=== PATIENT | male | born 2000 | race Caucasian/White ===

== ENCOUNTER 2024-08-06 18:09 | Inpatient (IN) | payer OTHER, SELFPAY ==
[2024-08-06] VITALS (9 sets, daily range): BP systolic 100–125; BP diastolic 63–98; BMI 27.8
[2024-08-06 12:17] LABS: % Basophils 0.3 % (0-2); % Immature Granulocytes 0.5 % (0-0.5); % Lymphocytes 15.1 % (20.5-51.1); % Monocytes 6.7 % (1.7-9.3); % Neutrophils 76.4 % (42.2-75.2); Absolute Eosinophils 0.2 10^3/uL (0-0.7); Absolute Immature Granulocytes 0.1 10^3/uL (0-0.05); Absolute Lymphocytes 2.3 10^3/uL (1.2-3.4); Absolute Neutrophils 11.5 10^3/uL (1.4-6.5); Hematocrit 38.1 % (39.0-52.0); Hemoglobin 12.6 g/dL (13.0-18.0); Mean Corp Hgb Conc. 33.1 g/dL (33.0-37.0); Mean Corpuscular Hgb 27.5 pg (27.0-31.0); Mean Platelet Volume 8.5 fL (7.4-10.4); Nucleated Red Blood Cells % 0 % (-); Platelet Count 401 10^3/uL (130-400); Red Blood Cell Count 4.59 10^6/uL (4.70-6.10); Red Cell Dist. Width 12.4 % (11.5-14.5); White Blood Cell Count 15.1 10^3/uL (4.8-10.8)
[2024-08-06 12:40] LABS: Alkaline Phosphatase 76 U/L (38-126); Blood Urea Nitrogen 10 mg/dl (9-20); Carbon Dioxide 25 mmol/L (22-30); Chloride 105 mmol/L (98-107); Glucose 98 mg/dl (70-99); Potassium 4.1 mmol/L (3.5-5.1); Sodium 138 mmol/L (135-145); eGFR > 60.00
[2024-08-06 12:41] LABS: ALT (SGPT) 36 U/L (0-50); AST (SGOT) 27 U/L (17-59); Albumin 3.7 g/dl (3.5-5.0); Total Bilirubin 0.7 mg/dl (0.2-1.3); Total Protein 7.3 g/dl (6.3-8.2)
--- NOTE | 2024-08-06 14:22 | ED.GENMED ---
History of Present Illness
General
Chief Complaint: Cold/Flu/URI Symptoms
Source: patient and family
Exam Limitations: none
Time Seen by Provider: 08/06/24 13:48
Nursing documentation reviewed up to this point in time: agreed with
History of Present Illness
History of Present Illness:
24-year-old male presents to the emergency department for evaluation of persistent cough and worsening shortness of breath X 6 weeks. Patient states symptoms initially started with a productive cough which has become dry over the past 6 weeks which
he initially attributed to allergies. However�cough persisted and he feels as if he is becoming increasingly short of breath. Patient also reports extreme fatigue, night sweats, and a 10 pound weight loss over the past 2 weeks. He denies any
known fevers.
Patient denies any recent travel or recent surgeries. No lower extremity pain or swelling. No hemoptysis.
Patient was seen at urgent care a few days ago where he had a chest x-ray performed which showed a concerning mass/opacity in right hilar region. Apparently urgent care prescribed doxycycline for suspected pneumonia although his pharmacy did not
have it in stock. It was recommended the patient have follow-up CT scan which he unfortunately was unable to get scheduled for the next few weeks.
He presents today with worsening shortness of breath CT scan for better evaluation.
Review of Systems
Review of Systems
Allergies reviewed?: Yes
All Other Systems: ROS reviewed and negative except as documented in HPI and ROS
Phy Exam
Physical Exam
Physical Exam:
Vitals: Patient's vital signs are stable. Afebrile
General: Patient is pale
Skin: Warm and dry, no rashes or lesions
Head: Normocephalic, atraumatic
Eyes: Sclera nonicteric.
Throat: Protecting airway
Neck: Normal ROM, no cervical spine tenderness, no meningismus
Cardiac: Regular rate and rhythm, no murmurs.
Pulm: No evidence of respiratory distress. Frequent cough. Lungs clear.
.
Abdomen: Abdomen soft. Minimal tenderness in epigastric region without rebound tenderness or guarding. No rash or ecchymoses.
Extremities: No evidence of cyanosis or edema. Palpable DP pulses bilaterally
Neuro: AAOx3. Grossly intact.
Psychiatric: Normal affect.
Course
Orders/Labs/Results
Orders:
Orders
08/06/24 Breakfast
Regular
At Your Request: Full Participation
08/06/24 12:01
CMP [Comprehensive Metabolic Panel] Urgent
Complete Blood Count/With Diff Urgent
Lipase Urgent
Comment: ADD ON
Monotest Urgent
Comment: ADD ON
08/06/24 14:07
0.9% Sodium Chloride 1000 ml [Nss] 1,000 ml IV BOLUS
08/06/24 14:08
Add On- LAB Urgent
Tests Added?: Monospot, lipase
CT Pe/abd/pel W Urgent
Reason For Exam: Cough x 6 weeks, SOB; mass seen on outpatient xray, orders combined
08/06/24 14:10
Electrocardiogram (*1) Urgent
Reason for Study: Shortness of Breath
EKG- Treatment ONCE
08/06/24 14:34
COVID-19 Antigen Urgent
Source: Nasal Swab
Influenza A+B Rapid Molecular Urgent
CHRISTINA Source: Nasal Swab
Specimen Description:
08/06/24 17:06
Piperacillin/Tazo 3.375 Gram [Zosyn] 3.375 gram in 50 ml IV NOW
08/06/24 17:07
Vancomycin [Vancocin] 2,000 mg 0.9% Sodium Chloride 500 ml [Nss] 500 ml IV NOW
08/06/24 17:44
Admit/Transfer Patient As Directed
Co-Sign Provider:
Level of Care: Inpatient admission
Assign to:: Medical/Surgical
Physician / Group: alejandro
Diagnosis: pneumonia
Reason for Hospitalization: pneumonia
Expected length of stay greater than two midnights?: Yes
ELOS- Estimated Length of Stay in days: 3
I certify the patient meets the requirements for IP care: Yes
Code Status As Directed
Resuscitation Status: Full Code
PRN Pain Medication Management As Directed
May give lesser potent ordered pain med per pt: Yes
preference::
Protocol:: Medication orders for pain may be administered in a
manner that supports deferring to patient preference
when the pt is:
- Requesting an ordered lesser potent pain medication.
Least to most potent pain medications are defined
as: acetaminophen < NSAID < tramadol < opioids
(morphine, oxycodone, hydromorphone).
- Requesting a lesser dose of the same medication IF
ORDERED.
- Requesting a less intrusive route of administration
if both routes are prescribed by the provider (PO <
IV).
08/06/24 17:48
AFB Culture [Acid Fast Culture & Smear] Stat
CHRISTINA Source: Sputum
Specimen Description:
08/06/24 17:49
PULMONARY CONSULT Routine
Consulting Provider: Jem Blair
Was physician already notified: Yes
Shahab- Isolation [Shahab- Precautions] As Directed
Type of Precautions: Airborne
08/06/24 19:25
Blood Culture Q30M
CHRISTINA Source: Blood/Venous
Specimen Description:
Blood Culture Q30M
CHRISTINA Source: Blood/Venous
Specimen Description:
08/06/24 20:37
Acetaminophen [Tylenol] 650 mg PO Q4HPRN PRN
Doxycycline [Vibramycin] 100 mg PO BID
Enoxaparin Sodium [Lovenox] 40 mg SC QPM
Escitalopram Oxalate [Lexapro] 20 mg PO QPM
Guaifenesin [Mucinex] 600 mg PO Q12
08/06/24 20:37
Legionella Urinary Antigen Routine
CHRISTINA Source: Urine
Specimen Description:
Respiratory Culture/Gram Stain Urgent
CHRISTINA Source: Sputum
Specimen Description:
Strep pneumoniae Antigen Routine
CHRISTINA Source: Urine
Specimen Description:
Activity As Directed
Activity Level: Out of Bed-Early Mobility
Intake/ Output As Directed
Frequency: Per unit guidelines
Vital Signs As Directed
Frequency: Per unit guidelines
Weight As Directed
Frequency: Once
Comment: on admission
DX Deep Vein Thrombosis Video Routine
08/07/24 00:00
Piperacillin/Tazo 3.375 Gram [Zosyn] 3.375 gram in 50 ml IV Q6H
08/07/24 05:44
Complete Blood Count/No Diff IN AM
08/07/24 06:00
AFB Culture [Acid Fast Culture & Smear] IN AM
CHRISTINA Source: Sputum
Specimen Description:
08/08/24 06:00
AFB Culture [Acid Fast Culture & Smear] IN AM
CHRISTINA Source: Sputum
Specimen Description:
Complete Blood Count/No Diff IN AM
08/09/24 06:00
AFB Culture [Acid Fast Culture & Smear] IN AM
CHRISTINA Source: Sputum
Specimen Description:
Complete Blood Count/No Diff IN AM
Abnormal Lab Results
08/06/24
12:01
WBC 15.1 H 10^3/uL
(4.8-10.8)
RBC 4.59 L 10^6/uL
(4.70-6.10)
Hgb 12.6 L g/dL
(13.0-18.0)
Hct 38.1 L %
(39.0-52.0)
Plt Count 401 H 10^3/uL
(130-400)
Abs Immat Gran (auto) 0.1 H 10^3/uL
(0-0.05)
Absolute Neuts (auto) 11.5 H 10^3/uL
(1.4-6.5)
Absolute Monos (auto) 1.0 H 10^3/uL
(0.1-0.6)
Neutrophils % 76.4 H %
(42.2-75.2)
Lymphocytes % 15.1 L %
(20.5-51.1)
08/06/24 12:01
08/06/24 12:01
Vital Signs
Initial and Last Documented VS:
Initial Vital Signs
Temp Pulse Resp BP Pulse Ox
99.5 F 94 18 125/74 98
08/06/24 11:49 08/06/24 11:49 08/06/24 11:49 08/06/24 11:49 08/06/24 11:49
Last Documented Vital Signs
Temp Pulse Resp BP Pulse Ox
98.5 F 95 22 104/61 95
08/07/24 08:06 08/07/24 08:06 08/07/24 08:06 08/07/24 08:06 08/07/24 08:06
MDM/Problems Addressed
Differential Diagnosis Includes:
Not limited to: pneumonia, lung abscess, pleural effusion, bronchitis, neoplastic disease such as lymphoma, etc
MDM/Problems Addressed:
24 year-old male who presents with six weeks of cough, night sweats, weight loss, fatigue, now with worsening shortness of breath. Seen at urgent care a few days ago were an x-ray showed a perihilar opacity/mass with recommendation for further
imaging by CT scan. Patient started on doxycycline for suspected pneumonia, although has not yet started prescription.
No exertional chest pain. No PE risk factors.
Patient has stable vital signs on arrival. He is a febrile.
Physical exam as above. Patient well appearing, in no apparent distress. Heart regular rate and rhythm. Lungs clear bilaterally. No clinical evidence of DVT on exam.
I did review chest x-ray report from urgent care. While patient does have infectious symptoms � concern for neoplastic process as well given hx night sweats/weight loss. Will check basic labs, EKG, viral studies. Patient�s primary care has already
ordered a CT scan chest/abdomen/pelvis. Will obtain this here in the emergency department.
Update: labs reviewed. Leukocytosis of 15.1. Chemistry unremarkable. CT scan shows large area of consolidation in right upper/right middle lobe w/ small foci of air and possible small area of cavitation. Also enlarged lymph nodes, possibly reactive.
Findings likely demonstrate pneumonia although unable to completely exclude neoplastic process. With concern of possible developing lung abscess - will admit patient for IV antibiotics. Patient will likely require pulmonary consult and possible
bronchoscopy. IV vancomycin/zosyn initiated in emergency department. Patient accepted to hospitalist service in stable condition.
Discussed all findings with patient�s primary care provider who is comfortable with plan and will follow him very closely outpatient.
Chronic conditions affecting care:
N/A
Acute Exacerbation and/or Progression of Chronic Illness:
N/A
*Radiology
Radiology exam reviewed: preliminary read by ED provider (Chest CT reviewed by me - YANAL / RML opacity) and radiology read reviewed
*Pulse Oximetry
Patient hypoxic: no
*EKG
Interpreted by ED Provider?: Yes
EKG Intrepretation Date: 08/06/24
Interpretation: normal
Comparison EKG: no comparison EKG present
Heart Rate: 88
Rate: normal
Rhythm: sinus arrhythmia
[place]: normal axis
Interval: normal QT interval
QRS Pattern: normal QRS
Ischemia: no ischemia
*Automobile Mechanic Interpretation
Rate: normal
Interpretation: normal
Heart Rate: 94
Rhythm: sinus
*Critical Care Note
Total Time (30-74mins, 75-104mins- exclusive of procedures): Not Applicable
Data Reviewed
Review of Other/Old Records Reveals: Radiology Studies (CXR report from which showed RUL opacity (pneumonia) vs mass) and Discharge Summary (Urgent care discharge summary - suspected bronchitis starte don po doxycycline advised repeat CT imaging
of chest)
Patient Management
Discussion with other providers: Hospitalist and PCP (Spoke with patients PCP, Dr. Blandon)
Escalation/DeEscalation of care consider admission/obs:
Admit for IV abx, further monitoring
ED Attending Note
-
Portions of this chart may have been created with voice recognition software.� Occasional wrong word or��sound alike� substitutions may have occurred due to the inherent limitations of voice recognition software.
Discharge Plan
Departure
Patient Disposition: Admit
Date of Disposition: 08/06/24
Time of Disposition: 17:15
Presentation/result/management discussed w/ accepting MD/DO: Hospitalist
Discharge Problem:
Right upper lobe pneumonia, Hilar adenopathy, Dyspnea
Interventions
Interventions:
*Risk Screen - Suicide Last Done: 08/06/24 11:49
*General Assessment Last Done: 08/06/24 14:30
*Neglect/Abuse Screening Last Done: 08/06/24 14:30
*ED- Fall Risk Assessment Last Done: 08/06/24 14:30
*ED COVID-19 Vaccine History Last Done: 08/06/24 14:30
*Nursing Disposition Last Done: 08/07/24 02:22
ED- Pulmonary Assessment Last Done: 08/06/24 14:30
[2024-08-06] MEDS: NSS 1000 IV (14:33)
[2024-08-06 14:53] LABS: Lipase 172 U/L (23-300)
[2024-08-06 15:23] LABS: COVID-19 Antigen Negative (Negative)
--- NOTE | 2024-08-06 15:42 | EDRN ---
Pt OOB prior to leaving for CT scan at this time.
[2024-08-06 16:03] LABS: Monotest Negative (Negative)
--- NOTE | 2024-08-06 17:23 | HPS.HSE ---
Family Physician
-
Family Physician: JASS Be
Chief Complaint
-
Cough and sob
History of Present Illness
24-year-old male with PMH for reactive airway disease, depression, anxiety presents to the emergency department for evaluation of persistent cough and worsening shortness of breath X 6 weeks. Patient states symptoms initially started with a
productive cough which has become dry over the past 6 weeks which he initially attributed to allergies. patient took prednisone as outpatient. he was also taking over the counter allergic medication with no relief in his symptoms. patient complained
of night sweats, fatigue and 10lb weight loss in two week. his abdomen was hurting after eating. denied fever, DAVILA,dizzy or syncope.denied chest pain.denied dysuria or hematuria.
Patient was seen at urgent care a few days ago where he had a chest x-ray performed which showed a concerning mass/opacity in right hilar region. Apparently urgent care prescribed doxycycline although his pharmacy did not have it in stock. It was
recommended the patient have follow-up CT scan which he unfortunately was unable to get scheduled for the next few weeks.
CT with the impression of Large area of consolidative increased parenchymal opacity involving the right upper lobe and the right middle lobe, which very likely represents pneumonia. Small foci of air density within this consolidation, suggesting
small foci of cavitation.
Patient received Vanco and Zosyn in ER. Admitted for further management
Medical History
Past Medical History
Past Medical History: Reports Other
Additional Past Medical History:
Reactive airway disease
Depression anxiety
Past Surgical History: Reports Other
Additional Past Surgical History:
[place] tooth extraction
Social History
Tobacco: Non-smoker
Alcohol: Occasional
Drug: None
Living: With Family
Employment: Employed
Family History
Family History: Not pertinent
Allergies / Home Medications
Allergies reflects when Allergies were last updated in [facility].
Home Medications with original date entered in [facility]
Allergy/Medication List:
Allergies
Allergy/AdvReac Type Severity Reaction Status Date / Time
No Known Allergies Allergy Verified 08/06/24 11:56
Home Medications
escitalopram oxalate 20 mg tablet (Lexapro) 20 mg PO QPM 08/06/24
Review of Systems
-
Constitutional: Reports Weight Loss and Fatigue
EENT: Reports No Symptoms
Respiratory: Reports Cough and Trouble Breathing
Cardiac: Reports No Symptoms
Abdomen/GI: Reports No Symptoms
: Reports No Symptoms
Musculoskeletal: Reports No Symptoms
Skin: Reports No Symptoms
Neurological: Reports No Symptoms
Endocrine: Reports No Symptoms
Hematologic/Lymphatic: Reports No Symptoms
Psych: Reports No Symptoms
Physical Exam
Vital Signs
Vital Signs
Temp Pulse Resp BP Pulse Ox
99.5 F 76 16 115/98 98
08/06/24 11:49 08/06/24 17:07 08/06/24 17:07 08/06/24 17:07 08/06/24 17:07
Physical Exam
General: Well Developed, Well Nourished and No Apparent Distress
HEENT: NormoCephalic, Moist mucous membranes and Atraumatic
Respiratory: Clear
Cardiac: S1/S2 and Regular Rhythm; No Murmur or Rub
GI: Soft, Non Tender, Non Distended and Normal Bowel Sounds; No Organomegaly
Rectal: Deferred by Provider
Musculoskeletal: No Clubbing, No Cyanosis and No Edema
Skin: No Rash
Neuro: AO x 3 and Nonfocal/grossly intact
Psych: Calm
Laboratory Results
-
08/06/24 12:01
08/06/24 12:01
Laboratory Results
Total Bilirubin 0.7 mg/dl (0.2-1.3) 08/06/24 12:01
AST 27 U/L (17-59) 08/06/24 12:01
ALT 36 U/L (0-50) 08/06/24 12:01
Alkaline Phosphatase 76 U/L (38-126) 08/06/24 12:01
Lipase 172 U/L (23-300) 08/06/24 12:01
Data Reviewed
-
CT Scan: Report Reviewed by me
Lab Data: Labs Reviewed by me
Impression/Plan
-
#pneumonia/with possible cavitation
-vanco and Zosyn in ED
-AFB x3
-Zosyn and Doxy continued
-WBCs 15.1
- COVID, flu, monoscreen negative
- CT abdomen pelvis with impression Large area of consolidative increased parenchymal opacity involving the right upper lobe and the right middle lobe, which very likely represents pneumonia. Small foci of air density within this consolidation,
suggesting small foci of cavitation.Neoplastic disease is a differential consideration but felt to be less likely.Small right pleural effusion.Enlarged right hilar, perihilar, mediastinal lymph nodes, most likely reactive inflammatory lymph
nodes.Mild splenomegaly
-pulmonology consulted
#depression/anxiety
-Lexapro continued
#DVT prophylaxis
-Lovenox
#CODE status
-full code
[2024-08-06] MEDS: ZOSYN 50 IV ×2 (17:28→23:49)
--- NOTE | 2024-08-06 17:29 | EDRN ---
Leslee Elias ON [employer] SUPERINTENDENT in room w/pt for5 hospitalist group at this time. Pharmacist called for vancomycin at this time.
--- NOTE | 2024-08-06 17:39 | EDRN ---
Dr. Grier in room w/pt at this time.
--- NOTE | 2024-08-06 17:59 | W.PN.UPDATE ---
Update Note
Progress Note Update
This is an addendum to the H&P written by Carri Elias on 08/06/2024. Patient seen examined independently with [employer]ATE [employer] GRINDER.
24-year-old male past medical history of anxiety/depression, reactive airway disease presenting with cough and worsening shortness of breath for 6 weeks. Initially productive cough became dry. Also with fatigue, night sweats and 10 pound weight
loss over 2 weeks. No fever. Treated with prednisone 3 weeks ago. Seen in urgent care few days ago had chest x-ray which showed findings concerning for mass/opacity in the right hilar region. Was not able to get antibiotic filled. No family
history of lung disease. No travel history.
Vital signs normal. Labs show leukocytosis. Also thrombocytosis.
CT PE/abdomen shows large area consolidative increased parenchymal opacity involving the right upper lobe and right middle lobe likely representing pneumonia. Small foci of air density in the consolidation suggesting foci of cavitation.
Patient with right-sided pneumonia, will treat for community-acquired pneumonia with Zosyn/doxycycline. However given concerns for cavitary lesion with weight loss, night sweats need to consider Mycobacterium infection versus abscess versus
malignancy although these diagnoses are unlikely. Check sputum culture, blood cultures, strep antigen, Legionella. Check AFB x 3. Pulmonary consulted. Consider ID.
[2024-08-06] MEDS: VANCOCIN 540 MG IV (18:07)
--- NOTE | 2024-08-06 18:58 | EDRN ---
Antibiotics ordered prior to BC and hung then admission orders requested BC so Carriamira REGAN TT'd and informed and said to still do the Blood cultures even though one antibiotic was infused and other infusing.
[2024-08-06] MEDS: VIBRAMYCIN 100 MG PO (20:47)
[2024-08-06] MEDS: LEXAPRO 20 MG PO (20:47)
[2024-08-06] MEDS: MUCINEX 600 MG PO (20:47)
[2024-08-07 00:53] VITALS: BP 117/61
[2024-08-07 01:47] VITALS: BP 103/64
[2024-08-07] MEDS: ZOSYN 50 IV ×4 (05:50→23:00)
[2024-08-07 06:00] LABS: Hemoglobin 11.6 g/dL (13.0-18.0); Mean Corp Hgb Conc. 33.1 g/dL (33.0-37.0); Mean Corpuscular Hgb 27.1 pg (27.0-31.0); Mean Corpuscular Volume 81.8 fL (80.0-94.0); Mean Platelet Volume 8.4 fL (7.4-10.4); Platelet Count 326 10^3/uL (130-400); Red Blood Cell Count 4.28 10^6/uL (4.70-6.10); Red Cell Dist. Width 12.4 % (11.5-14.5); White Blood Cell Count 16.3 10^3/uL (4.8-10.8)
[2024-08-07] MEDS: MUCINEX 600 MG PO ×2 (07:58→19:59)
[2024-08-07] MEDS: VIBRAMYCIN 100 MG PO ×2 (07:59→19:59)
[2024-08-07 08:06] VITALS: BP 104/61
--- NOTE | 2024-08-07 09:26 | CON.PUL ---
Consultation
Consultation Request
Date/Time Consultation Requested: 08/07/24
Date/Time Consultation Performed: 08/07/24
Performing Provider: Froylan
Reason for Consultation: PNA
Medical History
-
History of Present Illness:
Patient is a 24-year-old male with previous history of reactive airways disease, depression/anxiety, frequent infections as a child presenting to ER for evaluation of persistent cough and worsening shortness of breath for the past 6 weeks. He
had noticed progressive malaise, night sweats and chills at home. He never reported a fever on home testing. Was seen at urgent care a few days ago where chest x-ray performed showing possible pneumonia in the right hilar region. He was put on
antibiotics as an outpatient, but he had difficulty obtaining it. Presented to the ER and underwent CT imaging demonstrating large area of consolidation of the right upper lobe and right middle lobe. He is having ongoing cough without productive
mucus.
Mother states he had previous history of frequent infections as a young child, was never formally diagnosed with asthma was but was told he had reactive airways disease. He had infections 5-6 times per year and had grown out of it by young
adolescence. He has not had frequent infections as an adult. 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 Has not had recent traveling or other exposures. He denies any history of smoking or vaping. He is not on
inhalers as an outpatient.
Past Medical History
Past Medical History: Other (see list below)
Social History
Tobacco: Non-smoker
Alcohol: None
Drug: None
Family History
Family History: Reviewed & Not Pertinent
Allergies / Home Medications
Allergies
Allergy/AdvReac Type Severity Reaction Status Date / Time
No Known Allergies Allergy Verified 08/06/24 11:56
Home Medications
�Medication �Instructions �Recorded �Confirmed �Last Taken �Type
escitalopram oxalate 20 mg tablet 20 mg PO QPM 08/06/24 08/06/24 08/05/24 History
(Lexapro)
Review of Systems
-
History Source: Patient
All other systems: Negative unless noted
Vitals / Labs / Diagnostic Testing
Vital Signs
Temp Pulse Resp BP Pulse Ox
98.5 F 95 22 104/61 95
08/07/24 08:06 08/07/24 08:06 08/07/24 08:06 08/07/24 08:06 08/07/24 08:06
Lab Data
08/07/24 05:44
08/06/24 12:01
Microbiology
08/06/24 14:34 Nasal Swab Influenza Types A & B (DARIUSZ) - Final
Negative for Influenza A & B, NAAT
Negative results must be combined with clinical observations
and patient history.
Nucleic Acid Amplification test (NAAT)performed on the
[employer] platform.
Diagnostic Testing:
Physical Exam
-
HEENT: Normocephalic, Anicteric and Moist Mucous Membranes
Cardiovascular: S1/S2 and Regular Rhythm
Respiratory: Clear and Non-Labored Respirations
GI: Soft, Non Distended and Non Tender
Neurology: Awake, Alert, Oriented and No Motor Deficits
Skin: Warm, Dry and Good Color
General: Comfortable and Other (NAD)
Assessment
-
Patient is a 24-year-old male with previous history of reactive airways disease, depression/anxiety, frequent infections as a child presenting to ER for evaluation of persistent cough and worsening shortness of breath for the past 6 weeks. He
had noticed progressive malaise, night sweats and chills at home. Was seen at urgent care a few days ago where chest x-ray performed showing possible pneumonia in the right hilar region. He was put on antibiotics as an outpatient, but he had
difficulty obtaining it. Presented to the ER and underwent CT imaging demonstrating large area of consolidation of the right upper lobe and right middle lobe. We are consulted for evaluation 08/07/24.
Large R sided PNA
Malaise/chills
Cough, nonproductive
Night sweats
Leukocytosis
Mild anemia, hemoglobin 11
Conditions present CHANGE OVER
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
Frequent infections as a child
Depression/anxiety
Plan
No oxygen was needed on admission, currently saturating >90% on RA
Non toxic appearing
Mother states he had previous history of frequent infections as a young child, was never formally diagnosed with asthma was but was told he had reactive airways disease.
He had infections 5-6 times per year and had grown out of it by young adolescence. He has not had frequent infections as an adult.
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 Has not had recent traveling or other exposures.
He denies any history of smoking or vaping. He is not on inhalers as an outpatient.
Suspect patient has PNA, unclear at his age/exposures if he has any risk factors for disease
CXR/CT obtained indicating large R sided infiltrate, cough remains nonproductive
Other imaging reviewed, no present in 2021
We discussed role of diagnostic bronchoscopy, which we will arrange for tomorrow
I reviewed with patient/mother, care team--NPO at midnight
Await final cultures results when available
Do not feel this is related to TB or NTM, risk factors are minimal
Legionella/strep neg
Check MRSA screen
Will need outpatient pulmonary evaluation in our office for PFTs and 6MWT
Reviewed with patient and mother at bedside/care team
We will follow
Diagnostic Data
Chest X-Ray: 11/06/21- Normal radiographic appearance to the chest
12/16/13- Unremarkable obstruction series.
CT Scan: CAP 08/06/24- Large area of consolidative increased parenchymal opacity involving the right upper lobe and the right middle lobe, which very likely represents pneumonia. Small foci of air density within this consolidation, suggesting small
foci of cavitation. Neoplastic disease is a differential consideration but felt to be less likely.
Continued imaging follow-up is recommended. Small right pleural effusion. Examination is negative for pulmonary embolism.
Echo:
PFT's:
Reports and relevant images were personally reviewed.
Total time spent on this consultation __77__ minutes which includes review of history, physical exam, medications, laboratory data, personal review of imaging, extensive review of outpatient records, discussion with care team and respiratory therapy.
[2024-08-07 09:31] LABS: Urine Albumin Negative (Neg - Trace); Urine Bilirubin Negative (Negative); Urine Character Clear (Clear); Urine Color Yellow; Urine Glucose Negative (Negative); Urine Ketone Negative (Negative); Urine Leukocyte Negative (Negative); Urine Nitrite Negative (Negative); Urine Occult Blood 1+ (Negative); Urine Urobilinogen Negative (Neg - 1+)
[2024-08-07 10:14] LABS: Amphetamines Negative (Negative); Barbiturates Negative (Negative); Benzodiazepines Negative (Negative); Buprenorphine Negative (Negative); Cocaine Negative (Negative); Marijuana Negative (Negative); Methadone Negative (Negative); Methamphetamines Negative (Negative); Opiates Negative (Negative); Phencyclidine Negative (Negative); Tricyclic Antidepressants Negative (Negative)
[2024-08-07 10:28] LABS: Urine Red Blood Cell 0-2 /HPF (0-2); Urine Squamous Cell 0-2 /LPF (Few); Urine White Cell 0-2 /HPF (0-5)
[2024-08-07 10:29] LABS: Urine Bacteria Few (Negative)
--- NOTE | 2024-08-07 11:38 | W.PN.HOSP.TC ---
Today's Communication/Plan
-
see outlined plan below
Assessment / Plan
Assessment / Plan
Assessment:
Pneumonia with cavitary lesion
- CT: Large area of consolidative increased parenchymal opacity involving the right upper lobe and the right middle lobe, which very likely represents pneumonia. Small foci of air density within this consolidation, suggesting small foci of
cavitation. Neoplastic disease is a differential consideration but felt to be less likely.
- d/w Pulm. NPO p MN for bronchoscopy tomorrow
- respiratory isolation, AFB x 3, sputum culture
- continue Zosyn, Doxy day 1
- follow WBC count
- supportive care with pulm toilet, mucolytics
Hx of Depression/Anxiety
- continue Lexapro
DVT ppx: Lovenox
Code: Full
Anticipated Discharge: > 48 hours
Subjective/Interval History
-
Date of Service: August 07, 2024
resting comfortably
Objective Data
-
Labs:
Laboratory Results
08/07/24
05:44
WBC 16.3 H
Hgb 11.6 L
Hct 35.0 L
Plt Count 326
Vital Signs:
Vital Signs
Temp Pulse Resp BP Pulse Ox
98.5 F 95 22 104/61 95
08/07/24 08:06 08/07/24 08:06 08/07/24 08:06 08/07/24 08:06 08/07/24 08:06
I&O
08/06/24 08/07/24 08/08/24
06:59 06:59 06:59
Intake Total 50 / 50
Balance 50 / 50
Physical Exam
-
General: No Apparent Distress
HEENT: Normocephalic and Atraumatic
Respiratory: Rhonchi (RUL); Negative Wheezes or Rales
Cardiac: Regular Rhythm and S1/S2
GI: Soft and Nontender
Genito-urinary: No Costovertebral Tender
Neuro: AO x 3
Hematologic / Lymphatic: No Lymphadenopathy
Psych: Calm
Data Reviewed
-
Total Time Spent with Patient (in minutes): 44
Labs: Labs Reviewed by me
--- NOTE | 2024-08-07 14:33 | CM ---
CM met with pt and his parents bedside
Pt resides with his mother and father
He works [employer] and is insured through his parent's insurance plan
Has prescription coverage under plan
PCP_ Germaine Blanchard
Rx- Jessica Scott
Discharge Disposition- anticipate home no needs
[2024-08-07 17:17] VITALS: BP 118/64
[2024-08-07] MEDS: LEXAPRO 20 MG PO (17:41)
[2024-08-07 23:00] VITALS: BP 107/67
[2024-08-08] VITALS (8 sets, daily range): BP systolic 95–129; BP diastolic 56–105
[2024-08-08] MEDS: ZOSYN 50 IV ×4 (05:20→23:31)
[2024-08-08] MEDS: MUCINEX 600 MG PO ×2 (08:06→20:18)
[2024-08-08] MEDS: VIBRAMYCIN 100 MG PO ×2 (08:06→20:18)
[2024-08-08] MEDS: NSS 1000 IV (08:07)
[2024-08-08 08:10] LABS: Hematocrit 34.7 % (39.0-52.0); Hemoglobin 11.7 g/dL (13.0-18.0); Mean Corp Hgb Conc. 33.7 g/dL (33.0-37.0); Mean Platelet Volume 8.7 fL (7.4-10.4); Platelet Count 366 10^3/uL (130-400); Red Blood Cell Count 4.34 10^6/uL (4.70-6.10); Red Cell Dist. Width 12.3 % (11.5-14.5); White Blood Cell Count 14.1 10^3/uL (4.8-10.8)
[2024-08-08 08:41] LABS: Blood Urea Nitrogen 8 mg/dl (9-20); Calcium 9.1 mg/dl (8.4-10.2); Carbon Dioxide 18 mmol/L (22-30); Chloride 108 mmol/L (98-107); Estimated Creatinine Clearance > 125 ml/min; Glucose 98 mg/dl (70-99); Potassium 3.9 mmol/L (3.5-5.1); Sodium 137 mmol/L (135-145); eGFR > 60.00
--- NOTE | 2024-08-08 08:57 | W.PN.HOSP.TC ---
Today's Communication/Plan
-
bronch today
continue Abx
continue isolation
follow cultures
Assessment / Plan
Assessment / Plan
Assessment:
Pneumonia with cavitary lesion
- CT: Large area of consolidative increased parenchymal opacity involving the right upper lobe and the right middle lobe, which very likely represents pneumonia. Small foci of air density within this consolidation, suggesting small foci of
cavitation. Neoplastic disease is a differential consideration but felt to be less likely.
- d/w Pulm. NPO p MN for bronchoscopy today
- continue respiratory isolation, AFB x 3, sputum culture
- continue Zosyn, Doxy day 2
- follow WBC count
- supportive care with pulm toilet, mucolytics
Hx of Depression/Anxiety
- continue Lexapro
DVT ppx: Lovenox
Code: Full
Anticipated Discharge: 24 - 48 hours
Subjective/Interval History
-
Date of Service: August 08, 2024
anxious over upcoming bronchoscopy
Objective Data
-
Labs:
Laboratory Results
08/08/24
07:33
WBC 14.1 H
Hgb 11.7 L
Hct 34.7 L
Plt Count 366
Sodium 137
Potassium 3.9
Chloride 108 H
Carbon Dioxide 18 L
BUN 8 L
Creatinine 0.7
Glucose 98
Calcium 9.1
Vital Signs:
Vital Signs
Temp Pulse Resp BP Pulse Ox
98.0 F 59 18 117/64 97
08/08/24 07:34 08/08/24 07:34 08/08/24 07:34 08/08/24 07:34 08/08/24 07:34
I&O
08/07/24 08/08/24 08/09/24
06:59 06:59 06:59
Intake Total 50 / 50 400 / 400
Balance 50 / 50 400 / 400
Physical Exam
-
General: No Apparent Distress
HEENT: Normocephalic and Atraumatic
Respiratory: Negative Wheezes
Cardiac: Regular Rhythm
GI: Soft and Nontender
Genito-urinary: No Costovertebral Tender
Musculoskeletal: No Edema
Neuro: AO x 3
Psych: Calm
Data Reviewed
-
Total Time Spent with Patient (in minutes): 45
Labs: Labs Reviewed by me
--- NOTE | 2024-08-08 09:18 | W.PN.PUL3 ---
Today's Communication / Plan
-
Bronch today, reviewed with patient and procedure team
Await culture results/data
Continue abx
Repeat CXR post bronch
Assessment
-
Patient is a 24-year-old male with previous history of reactive airways disease, depression/anxiety, frequent infections as a child presenting to ER for evaluation of persistent cough and worsening shortness of breath for the past 6 weeks. He
had noticed progressive malaise, night sweats and chills at home. Was seen at urgent care a few days ago where chest x-ray performed showing possible pneumonia in the right hilar region. He was put on antibiotics as an outpatient, but he had
difficulty obtaining it. Presented to the ER and underwent CT imaging demonstrating large area of consolidation of the right upper lobe and right middle lobe. We are consulted for evaluation 08/07/24.
Large R sided PNA
Malaise/chills
Cough, nonproductive
Night sweats
Leukocytosis
Mild anemia, hemoglobin 11
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
Frequent infections as a child
Depression/anxiety
Plan
No oxygen was needed on admission, currently saturating >90% on RA
Non toxic appearing
Mother states he had previous history of frequent infections as a young child, was never formally diagnosed with asthma was but was told he had reactive airways disease.
He had infections 5-6 times per year and had grown out of it by young adolescence. He has not had frequent infections as an adult.
He works at a [employer] course and denies any sick contacts that he is aware of. Has not had recent traveling or other exposures.
He denies any history of smoking or vaping. He is not on inhalers as an outpatient.
Suspect patient has PNA, unclear at his age/exposures if he has any risk factors for disease
CXR/CT obtained indicating large R sided infiltrate, cough remains nonproductive
Other imaging reviewed, no present in 2021
We discussed role of diagnostic bronchoscopy, scheduled 08/08
I reviewed with patient/mother, care team
All questions answered
Await final cultures results when available
Do not feel this is related to TB or NTM, risk factors are minimal
Legionella/strep neg
Check MRSA screen--pending
Will need outpatient pulmonary evaluation in our office for PFTs and 6MWT
Reviewed with patient and mother at bedside/care team
Diagnostic Data
Chest X-Ray: 11/06/21- Normal radiographic appearance to the chest
12/16/13- Unremarkable obstruction series.
CT Scan: CAP 08/06/24- Large area of consolidative increased parenchymal opacity involving the right upper lobe and the right middle lobe, which very likely represents pneumonia. Small foci of air density within this consolidation, suggesting small
foci of cavitation. Neoplastic disease is a differential consideration but felt to be less likely.
Continued imaging follow-up is recommended. Small right pleural effusion. Examination is negative for pulmonary embolism.
Echo:
PFT's:
Reports and relevant images were personally reviewed.
Total time spent on this consultation __51__ minutes which includes review of history, physical exam, medications, laboratory data, personal review of imaging, extensive review of outpatient records, discussion with care team and respiratory therapy.
Subjective Data
-
Date of Service:
Date of Service: August 08, 2024
Chief Complaint: Pulmonary Follow Up
Subjective:
Remains stable on RA, bronch scheduled for today
Noticed more coughing/vomiting overnight, yellow mucus
He felt maybe he was swallowing mucus
Otherwise, no new complaints
Objective Data
Data Reviewed
Vital Signs / I&O / Oxygen:
Vital Signs
Temp Pulse Resp BP Pulse Ox
98.0 F 59 18 117/64 97
08/08/24 07:34 08/08/24 07:34 08/08/24 07:34 08/08/24 07:34 08/08/24 07:34
Intake and Output
08/07/24 08/08/24 08/09/24
06:59 06:59 06:59
Intake Total 50 / 50 400 / 400
Balance 50 / 50 400 / 400
SaO2 97
Physical Exam
General: Comfortable and Other (NAD)
HEENT: Normocephalic, Anicteric and Moist Mucous Membranes
Cardiovascular: S1-S2 and Regular Rhythm
Respiratory: Clear and Non-Labored Respirations
GI: Soft, Non Distended and Non Tender
Neurology: Awake, Alert, Oriented and No Motor Deficits
Skin: Warm, Dry and Good Color
Labs/Micro/Reports
Lab Data
08/08/24 07:33
08/08/24 07:33
Microbiology
08/06/24 19:25 Blood/Venous Blood Culture - Preliminary
No Growth in 24 hours- Final report to follow
08/06/24 19:25 Blood/Venous Blood Culture - Preliminary
No Growth in 24 hours- Final report to follow
08/07/24 15:19 Sputum Gram Stain - Preliminary
08/07/24 09:10 Urine Legionella Urinary Antigen - Final
Negative for Legionella pneumophila Serogroup 1 antigen.
A negative result does not rule out the possiblity of
Legionella infection due to other serogroups or species of
Legionella. Clinical correlation is recommended.
08/07/24 09:10 Urine Streptococcus pneumoniae Antigen (M - Final
Negative for Streptococcus pneumoniae antigen.
A negative result does not exclude infection with
Streptococcus pneumoniae. Clinical correlation is
recommended.
08/06/24 14:34 Nasal Swab Influenza Types A & B (DARIUSZ) - Final
Negative for Influenza A & B, NAAT
Negative results must be combined with clinical observations
and patient history.
Nucleic Acid Amplification test (NAAT)performed on the
[employer] platform.
--- NOTE | 2024-08-08 11:19 | CM ---
Patient seen at bedside with parents
Bronch completed
PLAN: Home, no needs anticipated
[2024-08-08 13:40] LABS: Brochalveolar Lavage Color Colorless; Brochalveolar Lavage Volume 10 ml
[2024-08-08 13:41] LABS: Brochalveolar Lavage Character Hazy (Clear)
[2024-08-08 13:42] LABS: Brochalveolar Lavage WBC 337150 cells/ml
[2024-08-08 14:27] LABS: BAL Lymphocytes 36 %; BAL Macrophages 58 %; BAL Neutrophils 6 %
[2024-08-08] MEDS: LEXAPRO 20 MG PO (17:12)
[2024-08-08] MEDS: VISBIOME 1 CAP PO (17:49)
[2024-08-09] MEDS: ZOSYN 50 IV ×4 (05:23→23:43)
[2024-08-09 07:18] LABS: Hematocrit 37.6 % (39.0-52.0); Hemoglobin 12.5 g/dL (13.0-18.0); Mean Corp Hgb Conc. 33.2 g/dL (33.0-37.0); Mean Corpuscular Hgb 27.5 pg (27.0-31.0); Mean Corpuscular Volume 82.6 fL (80.0-94.0); Mean Platelet Volume 8.8 fL (7.4-10.4); Platelet Count 409 10^3/uL (130-400); Red Blood Cell Count 4.55 10^6/uL (4.70-6.10); Red Cell Dist. Width 12.4 % (11.5-14.5)
[2024-08-09 07:19] LABS: Blood Urea Nitrogen 12 mg/dl (9-20); Calcium 9.1 mg/dl (8.4-10.2); Carbon Dioxide 22 mmol/L (22-30); Chloride 108 mmol/L (98-107); Estimated Creatinine Clearance > 125 ml/min; Glucose 114 mg/dl (70-99); Potassium 4.6 mmol/L (3.5-5.1); Sodium 140 mmol/L (135-145); eGFR > 60.00
[2024-08-09 08:10] VITALS: BP 112/55
[2024-08-09] MEDS: VISBIOME 1 CAP PO (08:46)
[2024-08-09] MEDS: MUCINEX 600 MG PO ×2 (08:46→20:19)
[2024-08-09] MEDS: VIBRAMYCIN 100 MG PO ×2 (08:46→20:19)
--- NOTE | 2024-08-09 10:34 | W.PN.PUL3 ---
Today's Communication / Plan
-
Bronch results reviewed with patient, negative thus far
Can add prednisone course, short taper for inflammation
Continue abx, transition to PO course for 7-10 days
Encouraged ambulation today
Repeat CXR in AM
Discharge planning if improving
OP FU to be arranged w/ PFTs, repeat imaging with CT can be done in 6-8 weeks
Assessment
-
Patient is a 24-year-old male with previous history of reactive airways disease, depression/anxiety, frequent infections as a child presenting to ER for evaluation of persistent cough and worsening shortness of breath for the past 6 weeks. He
had noticed progressive malaise, night sweats and chills at home. Was seen at urgent care a few days ago where chest x-ray performed showing possible pneumonia in the right hilar region. He was put on antibiotics as an outpatient, but he had
difficulty obtaining it. Presented to the ER and underwent CT imaging demonstrating large area of consolidation of the right upper lobe and right middle lobe. We are consulted for evaluation 08/07/24.
Large R sided PNA
Malaise/chills
Cough, nonproductive
Night sweats
Leukocytosis
Mild anemia, hemoglobin 11
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
Frequent infections as a child
Depression/anxiety
Plan
No oxygen was needed on admission, currently saturating >90% on RA
Non toxic appearing
Remains stable on RA
Mother states he had previous history of frequent infections as a young child, was never formally diagnosed with asthma was but was told he had reactive airways disease.
He had infections 5-6 times per year and had grown out of it by young adolescence. He has not had frequent infections as an adult.
He works at a [employer] course and denies any sick contacts that he is aware of. Has not had recent traveling or other exposures.
He denies any history of smoking or vaping. He is not on inhalers as an outpatient.
Suspect patient has PNA, unclear at his age/exposures if he has any risk factors for disease
CXR/CT obtained indicating large R sided infiltrate, cough remains nonproductive
Other imaging reviewed, no present in 2021
Bronchoscopy results reviewed, prelim negative cultures
Cyto still pending
WBC on cell count very high
Will add PO prednisone, can continue short taper
Repeat CXR in AM
Await final cultures results when available
Do not feel this is related to TB or NTM, risk factors are minimal
Legionella/strep neg
Check MRSA screen--neg
Can complete abx course for 7-10 days
Will need outpatient pulmonary evaluation in our office for PFTs and 6MWT
Reviewed with patient and mother at bedside/care team
Diagnostic Data
Chest X-Ray: 11/06/21- Normal radiographic appearance to the chest
12/16/13- Unremarkable obstruction series.
CT Scan: CAP 08/06/24- Large area of consolidative increased parenchymal opacity involving the right upper lobe and the right middle lobe, which very likely represents pneumonia. Small foci of air density within this consolidation, suggesting small
foci of cavitation. Neoplastic disease is a differential consideration but felt to be less likely.
Continued imaging follow-up is recommended. Small right pleural effusion. Examination is negative for pulmonary embolism.
Echo:
PFT's:
Reports and relevant images were personally reviewed.
Total time spent on this consultation __51__ minutes which includes review of history, physical exam, medications, laboratory data, personal review of imaging, extensive review of outpatient records, discussion with care team and respiratory therapy.
Subjective Data
-
Date of Service:
Date of Service: August 09, 2024
Chief Complaint: Pulmonary Follow Up
Subjective:
Doing well today, no new complaints
Feels his SOB/cough improving, ambulating more
Mother and cousin at bedside
Objective Data
Data Reviewed
Vital Signs / I&O / Oxygen:
Vital Signs
Temp Pulse Resp BP Pulse Ox
97.8 F 60 17 112/55 98
08/08/24 23:00 08/09/24 08:10 08/09/24 08:10 08/09/24 08:10 08/09/24 08:30
Intake and Output
08/08/24 08/09/24 08/10/24
06:59 06:59 06:59
Intake Total 400 / 400 2039
Balance 400 / 400 2039
SaO2 98
Physical Exam
General: Comfortable and Other (NAD)
HEENT: Normocephalic, Anicteric and Moist Mucous Membranes
Cardiovascular: S1-S2 and Regular Rhythm
Respiratory: Clear and Non-Labored Respirations
GI: Soft, Non Distended and Non Tender
Neurology: Awake, Alert, Oriented and No Motor Deficits
Skin: Warm, Dry and Good Color
Labs/Micro/Reports
Lab Data
08/09/24 06:06
08/09/24 06:06
Microbiology
08/08/24 10:28 Bronch Right Middle Lobe Respiratory Culture - Preliminary
NO GROWTH
08/08/24 10:28 Bronch Right Middle Lobe Gram Stain - Preliminary
08/06/24 19:25 Blood/Venous Blood Culture - Preliminary
No Growth in 48 hours- Final report to follow
08/06/24 19:25 Blood/Venous Blood Culture - Preliminary
No Growth in 48 hours- Final report to follow
08/07/24 15:03 Nose MRSA Screen - Final
No Methicillin Resistant Staphylococcus aureus isolated.
08/08/24 10:28 Bronch Right Middle Lobe Fungal Culture - Preliminary
Culture in progress.
Positive cultures are reported as soon as detected.
Final report to follow in four to five weeks.
08/07/24 15:19 Sputum Respiratory Culture - Preliminary
Usual Respiratory Clara
08/07/24 15:19 Sputum Gram Stain - Preliminary
08/07/24 09:10 Urine Legionella Urinary Antigen - Final
Negative for Legionella pneumophila Serogroup 1 antigen.
A negative result does not rule out the possiblity of
Legionella infection due to other serogroups or species of
Legionella. Clinical correlation is recommended.
08/07/24 09:10 Urine Streptococcus pneumoniae Antigen (M - Final
Negative for Streptococcus pneumoniae antigen.
A negative result does not exclude infection with
Streptococcus pneumoniae. Clinical correlation is
recommended.
08/06/24 14:34 Nasal Swab Influenza Types A & B (DARIUSZ) - Final
Negative for Influenza A & B, NAAT
Negative results must be combined with clinical observations
and patient history.
Nucleic Acid Amplification test (NAAT)performed on the
[employer] platform.
--- NOTE | 2024-08-09 11:24 | CM ---
Patient chart reviewed
cxr ordred for tomorrow
IV antibiotics
PLAN: home, anticipate no needs
[2024-08-09] MEDS: DELTASONE 40 MG PO (11:29)
--- NOTE | 2024-08-09 12:38 | W.PN.HOSP.TC ---
Today's Communication/Plan
-
steroids added
repeat CXR in AM
continue abx pending bronch culture results
Assessment / Plan
Assessment / Plan
Assessment:
Pneumonia with cavitary lesion
- CT: Large area of consolidative increased parenchymal opacity involving the right upper lobe and the right middle lobe, which very likely represents pneumonia. Small foci of air density within this consolidation, suggesting small foci of
cavitation. Neoplastic disease is a differential consideration but felt to be less likely.
- s/p bronch with biopsies 08/08
- follow cultures
- continue Zosyn, Doxy day 3
- follow WBC count
- supportive care with pulm toilet, mucolytics
- 08/09: steroids added by pulmonary
- repeat CXR 08/10
- pulm following
Hx of Depression/Anxiety
- continue Lexapro
DVT ppx: Lovenox
Code: Full
Anticipated Discharge: Within 24 hours
Subjective/Interval History
-
Date of Service: August 09, 2024
denies any new complaints
feels less SOB, less cough
less fatigue
Objective Data
-
Labs:
Laboratory Results
08/09/24
06:06
WBC 16.0 H
Hgb 12.5 L
Hct 37.6 L
Plt Count 409 H
Sodium 140
Potassium 4.6
Chloride 108 H
Carbon Dioxide 22
BUN 12
Creatinine 0.6 L
Glucose 114 H
Calcium 9.1
Vital Signs:
Vital Signs
Temp Pulse Resp BP Pulse Ox
97.8 F 60 17 112/55 98
08/08/24 23:00 08/09/24 08:10 08/09/24 08:10 08/09/24 08:10 08/09/24 08:30
I&O
08/08/24 08/09/24 08/10/24
06:59 06:59 06:59
Intake Total 400 / 400 2039
Balance 400 / 400 2039
Physical Exam
-
General: No Apparent Distress
HEENT: Normocephalic and Atraumatic
Respiratory: Negative Wheezes
Cardiac: Regular Rhythm and S1/S2
GI: Soft and Nontender
Musculoskeletal: No Edema
Neuro: AO x 3
Psych: Calm
Data Reviewed
-
Total Time Spent with Patient (in minutes): 45
Labs: Labs Reviewed by me
[2024-08-09 15:20] VITALS: BP 101/64
[2024-08-09] MEDS: LEXAPRO 20 MG PO (17:01)
[2024-08-09 23:05] VITALS: BP 109/58
[2024-08-10] MEDS: ZOSYN 50 IV ×2 (06:19→12:04)
[2024-08-10 06:25] LABS: Hematocrit 37.4 % (39.0-52.0); Hemoglobin 12.1 g/dL (13.0-18.0); Mean Corp Hgb Conc. 32.4 g/dL (33.0-37.0); Mean Corpuscular Hgb 27.1 pg (27.0-31.0); Mean Corpuscular Volume 83.7 fL (80.0-94.0); Mean Platelet Volume 8.5 fL (7.4-10.4); Platelet Count 395 10^3/uL (130-400); Red Blood Cell Count 4.47 10^6/uL (4.70-6.10); Red Cell Dist. Width 12.5 % (11.5-14.5); White Blood Cell Count 12.8 10^3/uL (4.8-10.8)
[2024-08-10 07:35] VITALS: BP 113/48
[2024-08-10] MEDS: VIBRAMYCIN 100 MG PO (08:06)
[2024-08-10] MEDS: VISBIOME 1 CAP PO (08:06)
[2024-08-10] MEDS: MUCINEX 600 MG PO (08:06)
[2024-08-10] MEDS: DELTASONE 40 MG PO (08:06)
[2024-08-10 08:59] LABS: Blood Urea Nitrogen 13 mg/dl (9-20); Calcium 9.3 mg/dl (8.4-10.2); Carbon Dioxide 22 mmol/L (22-30); Chloride 112 mmol/L (98-107); Estimated Creatinine Clearance > 125 ml/min; Glucose 84 mg/dl (70-99); Potassium 4.1 mmol/L (3.5-5.1); Sodium 141 mmol/L (135-145); eGFR > 60.00
--- NOTE | 2024-08-10 10:16 | W.PN.PUL3 ---
Today's Communication / Plan
-
Doing well, stable on RA
Ambulating without SOB, no further cough
Repeat CXR showing improvement but still has hilar opacity--to be followed as OP with CT in 4-6 weeks
We will arrange FU
Discharge planning otherwise per team
Assessment
-
Patient is a 24-year-old male with previous history of reactive airways disease, depression/anxiety, frequent infections as a child presenting to ER for evaluation of persistent cough and worsening shortness of breath for the past 6 weeks. He
had noticed progressive malaise, night sweats and chills at home. Was seen at urgent care a few days ago where chest x-ray performed showing possible pneumonia in the right hilar region. He was put on antibiotics as an outpatient, but he had
difficulty obtaining it. Presented to the ER and underwent CT imaging demonstrating large area of consolidation of the right upper lobe and right middle lobe. We are consulted for evaluation 08/07/24.
Large R sided PNA
Malaise/chills
Cough, nonproductive
Night sweats
Leukocytosis
Mild anemia, hemoglobin 11
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
Frequent infections as a child
Depression/anxiety
Plan
No oxygen was needed on admission, currently saturating >90% on RA
Non toxic appearing
Remains stable on RA
Mother states he had previous history of frequent infections as a young child, was never formally diagnosed with asthma was but was told he had reactive airways disease.
He had infections 5-6 times per year and had grown out of it by young adolescence. He has not had frequent infections as an adult.
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 Has not had recent traveling or other exposures.
He denies any history of smoking or vaping. He is not on inhalers as an outpatient.
Suspect patient has PNA, unclear at his age/exposures if he has any risk factors for disease
CXR/CT obtained indicating large R sided infiltrate, cough remains nonproductive
Other imaging reviewed, no present in 2021
Bronchoscopy results reviewed, prelim negative cultures
Cyto still pending
WBC on cell count very high
Will add PO prednisone, can continue short taper
Repeat CXR in AM showing improvement, still with hilar opacity, but will reimage as OP in 4-6 weeks
Await final cultures results when available
Do not feel this is related to TB or NTM, risk factors are minimal
Legionella/strep neg
Check MRSA screen--neg
Can complete abx course for 7-10 days
Will need outpatient pulmonary evaluation in our office for PFTs and 6MWT
Reviewed with patient and mother at bedside/care team
Diagnostic Data
Chest X-Ray: 11/06/21- Normal radiographic appearance to the chest
12/16/13- Unremarkable obstruction series.
CT Scan: CAP 08/06/24- Large area of consolidative increased parenchymal opacity involving the right upper lobe and the right middle lobe, which very likely represents pneumonia. Small foci of air density within this consolidation, suggesting small
foci of cavitation. Neoplastic disease is a differential consideration but felt to be less likely.
Continued imaging follow-up is recommended. Small right pleural effusion. Examination is negative for pulmonary embolism.
Echo:
PFT's:
Reports and relevant images were personally reviewed.
Total time spent on this consultation __41__ minutes which includes review of history, physical exam, medications, laboratory data, personal review of imaging, extensive review of outpatient records, discussion with care team and respiratory therapy.
Subjective Data
-
Date of Service:
Date of Service: August 10, 2024
Chief Complaint: Pulmonary Follow Up
Subjective:
Doing well, no complaints
Stable on RA
Family at bedside
Objective Data
Data Reviewed
Vital Signs / I&O / Oxygen:
Vital Signs
Temp Pulse Resp BP Pulse Ox
97.8 F 48 14 113/48 98
08/10/24 07:35 08/10/24 07:35 08/10/24 07:35 08/10/24 07:35 08/10/24 07:35
Intake and Output
08/09/24 08/10/24 08/11/24
06:59 06:59 06:59
Intake Total 2039 480 / 480
Balance 2039 480 / 480
SaO2 98
Physical Exam
General: Comfortable and Other (NAD)
HEENT: Normocephalic, Anicteric and Moist Mucous Membranes
Cardiovascular: S1-S2 and Regular Rhythm
Respiratory: Clear and Non-Labored Respirations
GI: Soft, Non Distended and Non Tender
Neurology: Awake, Alert, Oriented and No Motor Deficits
Skin: Warm, Dry and Good Color
Labs/Micro/Reports
Lab Data
08/10/24 06:15
08/10/24 08:04
Microbiology
08/08/24 10:28 Bronch Right Middle Lobe Respiratory Culture - Final
NO GROWTH
08/08/24 10:28 Bronch Right Middle Lobe Gram Stain - Final
08/07/24 15:19 Sputum Acid Fast Bacilli Smear - Preliminary
08/07/24 15:19 Sputum Acid Fast Bacilli Culture - Preliminary
08/06/24 19:25 Blood/Venous Blood Culture - Preliminary
No Growth in 72 hours- Final report to follow
08/06/24 19:25 Blood/Venous Blood Culture - Preliminary
No Growth in 72 hours- Final report to follow
08/07/24 15:19 Sputum Respiratory Culture - Final
Usual Respiratory Clara
08/07/24 15:19 Sputum Gram Stain - Final
08/07/24 15:03 Nose MRSA Screen - Final
No Methicillin Resistant Staphylococcus aureus isolated.
08/08/24 10:28 Bronch Right Middle Lobe Fungal Culture - Preliminary
Culture in progress.
Positive cultures are reported as soon as detected.
Final report to follow in four to five weeks.
08/07/24 09:10 Urine Legionella Urinary Antigen - Final
Negative for Legionella pneumophila Serogroup 1 antigen.
A negative result does not rule out the possiblity of
Legionella infection due to other serogroups or species of
Legionella. Clinical correlation is recommended.
08/07/24 09:10 Urine Streptococcus pneumoniae Antigen (M - Final
Negative for Streptococcus pneumoniae antigen.
A negative result does not exclude infection with
Streptococcus pneumoniae. Clinical correlation is
recommended.
--- NOTE | 2024-08-10 12:39 | CM ---
chart reviewed
cxr completed
PLAN: Home, no needs when stable
parents to transport
--- NOTE | 2024-08-10 14:10 | W.PN.HOSP.TC ---
Today's Communication/Plan
-
dc home
Assessment / Plan
Assessment / Plan
Assessment:
Pneumonia with cavitary lesion
- CT: Large area of consolidative increased parenchymal opacity involving the right upper lobe and the right middle lobe, which very likely represents pneumonia. Small foci of air density within this consolidation, suggesting small foci of
cavitation. Neoplastic disease is a differential consideration but felt to be less likely.
- s/p bronch with biopsies 08/08
- follow cultures
- continue Zosyn, Doxy day 06/28
- dc on steroid taper
- supportive care with pulm toilet, mucolytics
- repeat CXR 08/10 improved
- pulm follow up outpatient
Hx of Depression/Anxiety
- continue Lexapro
DVT ppx: Lovenox
Code: Full
More than 30 minutes spent in discharge including
Final examination of the patient
Summarizing hospital stay
Instructions for continuing care to all relevant caregivers
Preparation of discharge records, prescriptions, and referral forms
Total time spent (in minutes):41
Anticipated Discharge: Today
Subjective/Interval History
-
Date of Service: August 10, 2024
no SOB
resting comfortably
Objective Data
-
Labs:
Laboratory Results
08/10/24 08/10/24
06:15 08:04
WBC 12.8 H
Hgb 12.1 L
Hct 37.4 L
Plt Count 395
Sodium Cancelled 141
Potassium Cancelled 4.1
Chloride Cancelled 112 H
Carbon Dioxide Cancelled 22
BUN Cancelled 13
Creatinine Cancelled 0.7
Glucose Cancelled 84
Calcium Cancelled 9.3
Vital Signs:
Vital Signs
Temp Pulse Resp BP Pulse Ox
97.8 F 48 14 113/48 98
08/10/24 07:35 08/10/24 07:35 08/10/24 07:35 08/10/24 07:35 08/10/24 07:35
I&O
08/09/24 08/10/24 08/11/24
06:59 06:59 06:59
Intake Total 2039 480 / 480
Balance 2039 480 / 480
Physical Exam
-
General: No Apparent Distress
HEENT: Normocephalic and Atraumatic
Respiratory: Negative Wheezes
Cardiac: Regular Rhythm and S1/S2
GI: Soft and Nontender
Genito-urinary: No Costovertebral Tender
Musculoskeletal: No Edema
Neuro: AO x 3
Hematologic / Lymphatic: No Lymphadenopathy
Psych: Calm
Data Reviewed
-
Total Time Spent with Patient (in minutes): 42
Labs: Labs Reviewed by me
--- NOTE | 2024-08-10 14:19 | W.DS.TRANS ---
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
-
Discharge Instructions:
Discharge Diagnosis/Procedures cavitary pneumonia s/p bronch 08/08
Diet Regular
Activity As tolerated
Bathing Restrictions None
Instructions:
Stand-Alone Forms:
Changes to Home Medications: No
Discharge Medications:
DC Medications w/original date entered in [facility]
escitalopram oxalate 20 mg tablet (Lexapro) 20 mg PO QPM 08/06/24
amoxicillin 875 mg-potassium clavulanate 125 mg tablet 1 tab PO BID #12 tabs 08/10/24
doxycycline hyclate 100 mg capsule 100 mg PO BID #12 caps 08/10/24
prednisone 10 mg tablet 10 mg PO DIRECTED #13 tabs 08/10/24
Home Medication Changes
Pending Results: No
Total time spent discharging patient (in min): 41
== END 2024-08-10 14:34 | disposition home or self-care (01) | DRG 195 ==
LOC: 3 WEST ACU 18:09
PROVIDERS: Emergency Medicine; Internal Medicine Critical Care Medicine; Registered Nurse; ADMITTING PHYSICIAN Hospitalist; ATTENDING PHYSICIAN Internal Medicine; EMERGENCY PHYSICIAN Emergency Medicine; FAMILY PHYSICIAN Nurse Practitioner; OTHER PHYSICIAN Internal Medicine
PROC: 0BDD4ZX Extraction of Right Middle Lung Lobe, Percutaneous Endoscopic Approach, Diagnostic (ICD-10-PCS; 2024-08-08)
DX: J18.8 Other pneumonia, unspecified organism (principal); J98.4 Other disorders of lung; F32.A Depression, unspecified; F41.9 Anxiety disorder, unspecified; Q33.9 Congenital malformation of lung, unspecified; Z11.52 Encounter for screening for COVID-19
CPT/HCPCS: 71045; 71046; 71275; 74177; 80048; 80053; 80306; 81003; 81015; 83690; 85025; 85027; 86308; 87015; 87040; 87070; 87102; 87116; 87205; 87449; 87502; 87811; 87899; 88112; 89051; 93005; Q9967

== ENCOUNTER 2024-08-22 22:39 | Emergency (ER) | payer OTHER, SELFPAY ==
[2024-08-22 22:40] VITALS: BMI 27.3
[2024-08-22 22:41] VITALS: BP 133/77
[2024-08-23 00:42] VITALS: BP 122/68
--- NOTE | 2024-08-23 01:25 | ED.GENMED ---
History of Present Illness
General
Chief Complaint: Cough
Source: patient
Exam Limitations: none
Time Seen by Provider: 08/23/24 01:23
Nursing documentation reviewed up to this point in time: agreed with
History of Present Illness
History of Present Illness:
24-year-old male with a past medical history of reactive airway disease as a child presents emergency department today with concerns of persistent cough and pneumonia symptoms. Patient reports that he was discharged from here on August 10 for right
sided pneumonia. His symptoms at that time were cough and shortness of breath. He was found to have a large right sided cavitary pneumonia. He did have a bronchoscopy at the time but we are awaiting culture reports. Patient was discharged on
doxycycline, Augmentin, and prednisone. He finished these a few days ago. Patient reports that his cough is still lingering he feels like he started to get more fatigued. Patient's parents note that he seemed like he started to get better but
then his symptoms got worse again. Patient denies any fevers or chills. He denies any tremors. He denies any nausea or vomiting. He notes any abdominal pain. He denies any hemoptysis. He denies any lower extremity swelling or edema.
Review of Systems
Review of Systems
All Other Systems: ROS reviewed and negative except as documented in HPI and ROS
Phy Exam
Physical Exam
Physical Exam:
General: Patient is well appearing and in no acute distress; non-toxic
Skin: Warm and dry, no rashes or lesions
Head: Normocephalic, atraumatic
Eyes: Sclera non-icteric. EOMs intact.
Cardiac: Regular rate and rhythm, no murmur
Peripheral Vascular: No lower extremity swelling or edema
Pulm: Normal respiratory effort, no wheezes, rales, or rhonchi
Abdomen: No abdominal tenderness to palpation
Neuro: CN II-XII intact, no focal neurologic deficits.
Psychiatric: Appropriate mood and affect.
Course
Orders/Labs/Results
Orders:
Orders
08/23/24 01:27
IV Insert/Care/Rem.- Treatment PRN
CR Chest - 2 Views Urgent
Comment:
Reason For Exam: cough
08/23/24 01:37
COVID-19 Antigen Urgent
Source: Nasal Swab
Complete Blood Count/With Diff Urgent
Comprehensive Metabolic Panel Urgent
Influenza A+B Rapid Molecular Urgent
CHRISTINA Source: Nasal Swab
Specimen Description:
Abnormal Lab Results
08/23/24
01:37
WBC 13.1 H 10^3/uL
(4.8-10.8)
RBC 3.99 L 10^6/uL
(4.70-6.10)
Hgb 10.9 L g/dL
(13.0-18.0)
Hct 32.5 L %
(39.0-52.0)
Abs Immat Gran (auto) 0.1 H 10^3/uL
(0-0.05)
Absolute Neuts (auto) 10.5 H 10^3/uL
(1.4-6.5)
Absolute Monos (auto) 0.8 H 10^3/uL
(0.1-0.6)
Neutrophils % 79.5 H %
(42.2-75.2)
Lymphocytes % 12.7 L %
(20.5-51.1)
Chloride 109 H mmol/L
(98-107)
Glucose 111 H mg/dl
(70-99)
Albumin 3.4 L g/dl
(3.5-5.0)
08/23/24 01:37
08/23/24 01:37
Vital Signs
Initial and Last Documented VS:
Initial Vital Signs
Temp Pulse Resp BP Pulse Ox
97.8 F 99 20 133/77 98
08/22/24 22:41 08/22/24 22:41 08/22/24 22:41 08/22/24 22:41 08/22/24 22:41
Last Documented Vital Signs
Temp Pulse Resp BP Pulse Ox
97.8 F 50 16 106/58 99
08/23/24 00:42 08/23/24 03:33 08/23/24 03:33 08/23/24 03:33 08/23/24 03:33
MDM/Problems Addressed
Differential Diagnosis Includes:
ddx include viral syndrome, pneumonia, persistent cough, allergic rhinitis, bronchitis
MDM/Problems Addressed:
24-year-old male with a past medical history of reactive airway disease as a child presents emergency department today with concerns of persistent cough and pneumonia symptoms. He was discharged on August 10 for pneumonia with the cavitary lesion. He
has a follow-up with pulmonology next week. On physical exam, he is well-appearing no acute distress his vital signs are stable he is afebrile, his lung sounds are clear. His white count is similar to how it was at discharge. His x-ray shows
unchanged right sided pneumonia with cavitary lesion. In light of this finding and no improvement, I discussed findings of my attending physician. We did recommend admission considering no improvement. On reassessment, patient reports that he
feels like his symptoms have not necessarily been worsening but he just feels like his symptoms are unchanged. 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 Patient and family hesitant to be admitted. Discussed case
with attending again, in light of no fever, unremarkable blood work, he is stable and we decided to restart Augmentin and advised him to call his mottler operator for sooner follow-up appointment. We did discuss strict return precautions. Patient
stable for discharge.
*Pulse Oximetry
Patient hypoxic: no
*Critical Care Note
Total Time (30-74mins, 75-104mins- exclusive of procedures): Not Applicable
Data Reviewed
Review of Other/Old Records Reveals: Discharge Summary (Reviewed most recent discharge summary)
ED Attending Note
-
Portions of this chart may have been created with voice recognition software.� Occasional wrong word or��sound alike� substitutions may have occurred due to the inherent limitations of voice recognition software.
Discharge Plan
Departure
Patient Disposition: Home (Routine Discharge)
Date of Disposition: 08/23/24
Time of Disposition: 03:12
Patient with high blood pressure during this ER visit?: Yes
Condition: Good
Discharge Problem:
Cough, Right upper lobe pneumonia
Instructions: Pneumonia, Adult (DC), Cough, Adult (DC), BLOOD PRESSURE
Prescriptions:
New
amoxicillin-pot clavulanate 875-125 mg tablet
1 tab PO BID 7 Days Qty: 14 0RF
benzonatate 200 mg capsule
200 mg PO TID PRN (Reason: Cough) Qty: 14 0RF
No Action
escitalopram oxalate [Lexapro] 20 mg Tablet
20 mg PO QPM
doxycycline hyclate 100 mg Capsule
100 mg PO BID Qty: 12 0RF
amoxicillin-pot clavulanate 875-125 mg tablet
1 tab PO BID Qty: 12 0RF
prednisone 10 mg tablet
10 mg PO DIRECTED Qty: 13 0RF
Rx Instructions:
take 30mg x 2 days, then 20mg x 2 days, then 10mg x 3 days then stop
Referrals:
Germaine Blanchard CRNP [Family Provider]
Ynes Galeano, DO [Active, Pulmonary Medicine] - Tomorrow
Activity Restrictions/Additional Instructions:
PLEASE CALL DR. SMALLS'S OFFICE LATER TODAY FOR A SOONER FOLLOW UP APPOINTMENT.
Please resume Augmentin. Please take one tablet twice daily for 7 days.
You can also take Tessalon pearls as needed for cough.
As discussed we did consider admission to the hospitalist. PLEASE RETURN SHOULD YOU COUGH UP BLOOD, DEVELOP FEVER, TREMORS, BECOME SHORT OF BREATH, DEVELOP CHEST PAIN, OR ANY OTHER SIGNS OR SYMPTOMS WORRISOME TO YOU!!!
Interventions
Interventions:
*Risk Screen - Suicide Last Done: 08/22/24 22:41
*General Assessment Last Done: 08/23/24 00:39
*Neglect/Abuse Screening Last Done: 08/22/24 22:41
*ED- Fall Risk Assessment Last Done: 08/23/24 00:39
*Nursing Disposition Last Done: 08/23/24 03:33
ED- Pulmonary Assessment Last Done: 08/23/24 00:39
Discharge Date and Time
Discharge Date/Time: 08/23/24 03:35
Print Language: SLOVAK
[2024-08-23 01:52] LABS: % Basophils 0.3 % (0-2); % Eosinophils 0.7 % (0-6); % Immature Granulocytes 0.5 % (0-0.5); % Lymphocytes 12.7 % (20.5-51.1); % Monocytes 6.3 % (1.7-9.3); % Neutrophils 79.5 % (42.2-75.2); Absolute Eosinophils 0.1 10^3/uL (0-0.7); Absolute Immature Granulocytes 0.1 10^3/uL (0-0.05); Absolute Lymphocytes 1.7 10^3/uL (1.2-3.4); Absolute Monocytes 0.8 10^3/uL (0.1-0.6); Absolute Neutrophils 10.5 10^3/uL (1.4-6.5); Hematocrit 32.5 % (39.0-52.0); Hemoglobin 10.9 g/dL (13.0-18.0); Mean Corp Hgb Conc. 33.5 g/dL (33.0-37.0); Mean Corpuscular Hgb 27.3 pg (27.0-31.0); Mean Corpuscular Volume 81.5 fL (80.0-94.0); Mean Platelet Volume 8.4 fL (7.4-10.4); Nucleated Red Blood Cells % 0 % (-); Platelet Count 268 10^3/uL (130-400); Red Blood Cell Count 3.99 10^6/uL (4.70-6.10); Red Cell Dist. Width 13.4 % (11.5-14.5); White Blood Cell Count 13.1 10^3/uL (4.8-10.8)
[2024-08-23 01:56] LABS: COVID-19 Antigen Negative (Negative)
[2024-08-23 02:33] LABS: ALT (SGPT) 22 U/L (0-50); AST (SGOT) 21 U/L (17-59); Albumin 3.4 g/dl (3.5-5.0); Alkaline Phosphatase 78 U/L (38-126); Blood Urea Nitrogen 12 mg/dl (9-20); Calcium 8.9 mg/dl (8.4-10.2); Carbon Dioxide 22 mmol/L (22-30); Chloride 109 mmol/L (98-107); Estimated Creatinine Clearance > 125 ml/min; Glucose 111 mg/dl (70-99); Potassium 3.8 mmol/L (3.5-5.1); Sodium 139 mmol/L (135-145); Total Bilirubin 0.6 mg/dl (0.2-1.3); Total Protein 6.3 g/dl (6.3-8.2); eGFR > 60.00
[2024-08-23 03:33] VITALS: BP 106/58
== END 2024-08-23 03:35 | disposition home or self-care (01) ==
LOC: EMR 22:39
PROVIDERS: Physician Assistant; EMERGENCY PHYSICIAN Emergency Medicine; FAMILY PHYSICIAN Nurse Practitioner
DX: J18.9 Pneumonia, unspecified organism (principal); J45.909 Unspecified asthma, uncomplicated; Z11.52 Encounter for screening for COVID-19
CPT/HCPCS: 99284; 71046; 80053; 85025; 87502; 87811

== ENCOUNTER → 2024-09-03 08:01 | Outpatient (REF) | payer OTHER, SELFPAY | LOC: HWRAD 08:01 | PROVIDERS: ATTENDING PHYSICIAN Family Medicine | DX: J18.9 Pneumonia, unspecified organism (principal) | CPT/HCPCS: 71250 ==